=== PATIENT | female | born 1965 | race Caucasian/White ===

== ENCOUNTER 2018-12-15 08:09 | Day surgery (SDC) | payer OTHER ==
[~2018-12-15] VITALS: Ht 160 cm; Wt 60.8 kg
[2018-12-15 08:23] VITALS: BP 133/88
[2018-12-15 13:29] VITALS: BP 129/88
== END 2018-12-15 12:45 | disposition home or self-care (01) ==
LOC: DS 08:09 → GI 11:30 → OR 12:15 → GI 12:15 → DS 12:45
DX: K29.70 Gastritis, unspecified, without bleeding (principal); B96.81 Helicobacter pylori [H. pylori] as the cause of diseases classified elsewhere; G47.00 Insomnia, unspecified; I10 Essential (primary) hypertension; K22.0 Achalasia of cardia; Z79.899 Other long term (current) drug therapy; M19.90 Unspecified osteoarthritis, unspecified site; Z90.710 Acquired absence of both cervix and uterus
CPT/HCPCS: 43235; J1200; J1610; J2250; J2310; J3010; J3490